=== PATIENT | female | born 1980 | race Caucasian/White ===

== ENCOUNTER 2017-09-19 21:58 | Emergency (ER) | payer OTHER ==
[~2017-09-19] VITALS: Ht 152.4 cm; Wt 72.6 kg
== END 2017-09-19 22:45 | disposition home or self-care (01) ==
LOC: ER 21:58
DX: M94.0 Chondrocostal junction syndrome [Tietze] (principal)

== ENCOUNTER 2019-06-19 16:55 | Outpatient (CLI) | payer OTHER | END 2019-06-19 17:00 | disposition home or self-care (01) | LOC: LAB 16:55 | DX: D51.0 Vitamin B12 deficiency anemia due to intrinsic factor deficiency (principal); D51.1 Vitamin B12 deficiency anemia due to selective vitamin B12 malabsorption with proteinuria; D51.3 Other dietary vitamin B12 deficiency anemia; D50.8 Other iron deficiency anemias; E06.3 Autoimmune thyroiditis; E55.9 Vitamin D deficiency, unspecified; M79.81 Nontraumatic hematoma of soft tissue; D68.8 Other specified coagulation defects; D55.0 Anemia due to glucose-6-phosphate dehydrogenase [G6PD] deficiency ==

== ENCOUNTER 2021-10-16 11:27 | Outpatient (CLI) | payer OTHER | END 2021-10-16 11:28 | disposition home or self-care (01) | LOC: LAB 11:27 | PROVIDERS: ATTEND Internal Medicine Hematology & Oncology | DX: D50.8 Other iron deficiency anemias (principal); I10 Essential (primary) hypertension; R74.02 Elevation of levels of lactic acid dehydrogenase [LDH]; K76.89 Other specified diseases of liver; D51.1 Vitamin B12 deficiency anemia due to selective vitamin B12 malabsorption with proteinuria; E03.8 Other specified hypothyroidism; E06.3 Autoimmune thyroiditis; C50.919 Malignant neoplasm of unspecified site of unspecified female breast; R97.8 Other abnormal tumor markers; C56.9 Malignant neoplasm of unspecified ovary; R97.1 Elevated cancer antigen 125 [CA 125]; D51.0 Vitamin B12 deficiency anemia due to intrinsic factor deficiency; D51.3 Other dietary vitamin B12 deficiency anemia; E55.9 Vitamin D deficiency, unspecified; M79.81 Nontraumatic hematoma of soft tissue; D68.8 Other specified coagulation defects ==